=== PATIENT | female | born 1930 | race Caucasian/White ===

== ENCOUNTER → 2018-06-16 | Outpatient (CLI) | payer MEDICARE, OTHER | LOC: BFHH 20:26 | DX: M15.0 Primary generalized (osteo)arthritis (principal); I10 Essential (primary) hypertension; H35.30 Unspecified macular degeneration; H54.8 Legal blindness, as defined in USA; F03.90 Unspecified dementia, unspecified severity, without behavioral disturbance, psychotic disturbance, mood disturbance, and anxiety ==

== ENCOUNTER 2018-06-23 15:30 | Inpatient (IN) | payer MEDICARE, OTHER ==
--- NOTE | 2018-06-23 16:16 | RAD ---
EXAM: XR Abdomen 2 Views With XR Chest CLINICAL HISTORY: The patient is 88 years old and is Female; no bm in 7 days, vomit x1 today TECHNIQUE: Frontal view of the chest, frontal view of the abdomen/pelvis and upright or decubitus view of the abdomen. COMPARISON: Prior lumbar spine x-rays from three days earlier. FINDINGS: LUNGS: Unremarkable. No consolidation. PLEURAL SPACE: Unremarkable. No pneumothorax. HEART: Unremarkable. No cardiomegaly. MEDIASTINUM: Unremarkable. INTRAPERITONEAL SPACE: No free air. GASTROINTESTINAL TRACT: No disproportionate bowel distention or free intraperitoneal air is seen. BONES/JOINTS: The visualized bony structures OTHER FINDINGS: No abnormal calcifications are identified. IMPRESSION: Negative for signs of obstruction or free air. There are low lung volumes. Surgical clips are identified in the LEFT axillary region. Severe degenerative changes are identified in the shoulders. Again noted are stacked loops of air-filled nondistended small bowel in the LEFT upper abdomen along with air-filled nondistended transverse, descending, sigmoid colon and rectum. However, there is also a massively dilated 12 cm cecum with the caput cecum projecting medially in the LEFT lower quadrant. This is unchanged from three days earlier. Impression. 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 Electronically signed by: Dennis Patel MD 06/23/2018 4:15 PM CDT
[2018-06-23] MEDS ORDERED: SODIUM CHLORIDE 0.9% 1000ML 1,000 ML IVS ONE (17:07)
[2018-06-23] MEDS ORDERED: MORPHINE SULFATE INJ 10 MG/ML VIAL IV ONE (18:35)
--- NOTE | 2018-06-23 18:39 | CT ---
EXAM DESCRIPTION: Abdomen/Pelvis w/Contrast CLINICAL HISTORY: volvulus per x-ray COMPARISON: None Available TECHNIQUE: Contiguous axial images of the abdomen and pelvis were obtained after the administration of intravenous contrast followed by reconstruction images.This exam was performed according to our departmental dose-optimization program, which includes automated exposure control, adjustment of the mA and/or kV according to patient size and/or use of iterative reconstruction technique. FINDINGS: The cecum is markedly enlarged and contains a gas fluid level. There is moderate dilatation of the remainder of the colon to the level of the splenic flexure. No significant dilatation of the descending colon and rectosigmoid. There is colonic diverticulosis at the rectosigmoid. Small amount of free fluid is in the pelvis. No significant wall thickening of the colon. No sharp transition point. There is moderate right and small left pleural effusion with bilateral consolidations at the lung bases. Moderate hiatal hernia. There is pancreatic atrophy. There is mild bilateral perinephric stranding. No other acute abnormality. Aorta is normal in caliber and tapering. No free air. IMPRESSION: Findings suggest marked ileus involving the colon as there is no sharp transition point despite marked enlargement of the cecum and moderate enlargement of the midportion of the colon. There is colonic diverticulosis distally. No significant wall thickening to document diverticulitis or suggest neoplasm or ischemia. However degree of dilatation of the proximal and mid colon is concerning. Continued clinical follow-up to resolution of dilatation of loops of bowel is recommended as other etiology for dilatation is not entirely excluded. Electronically signed by: Dc Juares 06/23/2018 6:38 PM CDT
--- NOTE | 2018-06-23 19:04 | ED.PDOC ---
History of Present Illness - General Chief Complaint: GI Problem Stated Complaint: no BM for 7 days Time Seen by Provider: 06/23/18 15:44 Source: patient Exam Limitations: no limitations - History of Present Illness Initial Comments: the patient is an 88-year-old female presenting to the emergency room from [facility]. She does have a history of some significant dementia and hypertension. She had breast cancer more than 11 years ago. No history of any coronary artery disease or stroke. She does have a history of chronic constipation. She did have a fall within the last 2 weeks and does have some compression fractures which she has been recently much less mobile and also taking increased doses of tramadol. She was sent here due to not having had a documented bowel movement in the last 7 days. She is reporting some vague abdominal discomfort in the abdomen is obviously distended. No definite rebound or peritoneal signs on initial exam. No bruising. She does have pain in her back from the compression fracture. The patient did receive an enema yesterday and the day before. At this time she did pass a fair amount of gas. She did have one episode of vomiting this morning and did not want to eat lunch. No blood or bile in the vomitus according to report. No fevers. Timing/Duration: unsure Severity: moderate Improving Factors: nothing Associated Symptoms: malaise, nausea/vomiting Allergies/Adverse Reactions: Allergies Codeine Allergy (Verified 06/23/18 15:52) Home Medications: Ambulatory Orders ALPRAZolam [Xanax] 0.25 mg PO Q12H PRN 06/23/18 Buspirone HCl 10 mg PO TID 06/23/18 Cetirizine HCl [All Day Allergy] 10 mg PO DAILY PRN 06/23/18 Citalopram Hydrobromide 20 mg PO BEDTIME 06/23/18 Docusate Sodium [Stool Softener] 100 mg PO DAILY PRN 06/23/18 Donepezil Hydrochloride [Aricept] 5 mg PO DAILY 06/23/18 Furosemide [Lasix] 20 mg PO DAILY 06/23/18 Glucosamine Sulfate [Glucosamine] 1,000 mg PO DAILY 06/23/18 Ibuprofen 200 mg PO BID 06/23/18 Losartan Potassium & Hydrochlo [Losartan Potassium/Hydroc 100-25 mg] 1 tab PO DAILY 06/23/18 Multiple Vitamins W/ Minerals [Preservision Areds] 1 cap PO BID 06/23/18 Polyethylene Glycol 3350 [Miralax] 17 gm PO DAILY PRN 06/23/18 Tramadol HCl 50 mg PO Q6H PRN 06/23/18 Review of Systems - Review of Systems Constitutional: States: malaise EENTM: States: no symptoms reported Respiratory: States: no symptoms reported Cardiology: States: no symptoms reported Gastrointestinal/Abdominal: States: abdominal pain - vague diffuse, constipation , nausea, vomiting Genitourinary: States: no symptoms reported Musculoskeletal: States: back pain Skin: States: no symptoms reported Neurological: States: other - chronic dementia changes only Endocrine: States: no symptoms reported All other Systems: No Change from Baseline Past Medical History (General) - Patient Medical History Hx Stroke: No Hx Dementia: Yes Hx Congestive Heart Failure: No Hx Hypertension: Yes Hx Diabetes: No Hx Cancer: Yes - Breast - Vaccination History Hx Influenza Vaccination: - unknown Hx Pneumococcal Vaccination: - unknown - Social History Hx Tobacco Use: No - Activities of Daily Living Assisted/Assisted Living (if applicable):: [facility] Family Medical History - Family History Mother Family History: Unknown Living Status: Unknown Physical Exam - Physical Exam General Appearance: Alert, Other - the patient does have obvious dementia. After she is on the bed for a while she does start developing some back pain. Eye Exam: bilateral normal Ears, Nose, Throat: hearing grossly normal, normal ENT inspection, normal pharynx Neck: full range of motion, supple Respiratory: lungs clear, normal breath sounds, no respiratory distress, no accessory muscle use Cardiovascular/Chest: normal peripheral pulses, no edema, other - regular rate Peripheral Pulses: radial,right: 2+, radial,left: 2+, dorsalis pedis,right: 2+, dorsalis pedis,left: 2+ Gastrointestinal/Abdominal: other - abdomen is moderately distended. No rebound or peritoneal signs. Vague discomfort palpation in the lower abdomen. Rectal Exam: deferred Back Exam: other - the patient does have discomfort with palpation over her lower to mid back from the compression fracture. Extremity: non-tender, no calf tenderness, normal capillary refill, pedal edema - trace Neurologic: warm in worker II-XII nml as tested, alert, normal mood/affect - according to her family Skin Exam: normal color Comments: Vital Signs - 24 hr 06/23/18 06/23/1818 15:41 16:30 16:48 Temperature 98.6 F Pulse Rate [ 89 77 89 Left Brachial] Respiratory 20 22 20 Rate Blood Pressure 148/88 158/81 [Left Arm] O2 Sat by Pulse 93 L 98 93 L Oximetry 06/23/18 18:00 Temperature Pulse Rate [ 85 Left Brachial] Respiratory 20 Rate Blood Pressure 164/81 [Left Arm] O2 Sat by Pulse 95 Oximetry Progress - Progress Progress: 06/23/18 19:09 the patient is an 88-year-old female with dementia and a history of chronic constipation presenting secondary to an episode of vomiting today and not having had a good bowel movement in a week. It appears that the patient does have a very significant ileus and may have at one time had a cecal volvulus. it is possible it may be reduced prior to the CT scan with manipulation of the patient's abdomen. she is passing gas. There does not appear to be a large stool burden in the colon. CT scan and lab work showed no indication of any ischemia. She does have a mild elevation of her white blood cell count and the patient is receiving a blood culture and the dose of Zosyn. For the ileus the patient is going to be held on her tramadol, donepezil, cetirizine and Lasix for now. She is receiving IV fluid secondary to decreased oral intake over the last 24 hours. Certainly at 88 years of age, surgical exploration is not a sought after procedure. For now the patient will be monitored with the above changes. We will also try to get her out of bed and move her around as much as possible. We will try and use a lidocaine patch if one is available to help reduce her back pain for the moment. Her decreased mobility along with the tramadol use and dehydration are probably the biggest factors giving her an ileus though the dilation of the proximal colon does likely indicate that this is part of a longer term chronic issue. family are in the medical field and questions have been answered. - Results/Orders Results/Orders: initial acute abdominal series shows changes concerning for a cecal volvulus. CT scan of abdomen and pelvis with IV contrast shows findings that are consistent with a marked ileus involving the colon. There is no sharp transition point to indicate a volvulus at this time. No evidence of any wall thickening to indicate diverticulitis or neoplasm or ischemia. She has mild bilateral perinephric stranding. She does have a moderate hiatal hernia. She has a moderate right and small left pleural effusion with bilateral consolidations at the lung bases. BLOOD CULTURE Stat Laboratory Results - last 24 hr 06/23/18 06/23/18 06/23/18 16:44 16:44 16:44 WBC 12.4 H RBC 4.36 Hgb 13.3 Hct 40.5 MCV 92.9 MCH 30.5 MCHC 32.9 L RDW 13.4 Plt Count 216 MPV 8.8 Absolute Neuts (auto) 11.30 H Absolute Lymphs (auto) 0.40 L Absolute Monos (auto) 0.60 Absolute Eos (auto) 0.00 Absolute Basos (auto) 0.10 Neutrophils % 91.4 H Lymphocytes % 2.9 L Monocytes % 5.2 Eosinophils % 0.0 L Basophils % 0.5 PT 10.6 INR 1.06 PTT (SP) 23.9 Sodium 133 L Potassium 3.4 L Chloride 91 L Carbon Dioxide 32 H Anion Gap 13.4 BUN 33 H Creatinine 0.83 BUN/Creatinine Ratio 39.8 H Random Glucose 122 H Serum Osmolality 274.9 L Lactic Acid Calcium 9.1 Total Bilirubin 0.6 AST 23 ALT 23 Alkaline Phosphatase 70 Creatine Kinase 119 CK-MB (CK-2) 6.6 H* CK-MB (CK-2) % 5.55 H Troponin I 0.02 Serum Total Protein 6.8 Albumin 3.6 Globulin 3.2 Albumin/Globulin Ratio 1.1 Amylase 36 Lipase 20 L 06/23/18 16:44 WBC RBC Hgb Hct MCV MCH MCHC RDW Plt Count MPV Absolute Neuts (auto) Absolute Lymphs (auto) Absolute Monos (auto) Absolute Eos (auto) Absolute Basos (auto) Neutrophils % Lymphocytes % Monocytes % Eosinophils % Basophils % PT INR PTT (SP) Sodium Potassium Chloride Carbon Dioxide Anion Gap BUN Creatinine BUN/Creatinine Ratio Random Glucose Serum Osmolality Lactic Acid 1.2 Calcium Total Bilirubin AST ALT Alkaline Phosphatase Creatine Kinase CK-MB (CK-2) CK-MB (CK-2) % Troponin I Serum Total Protein Albumin Globulin Albumin/Globulin Ratio Amylase Lipase Departure - Departure Clinical Impression: Ileus, unspecified Disposition: Admit Patient Home Medications: Ambulatory Orders ALPRAZolam [Xanax] 0.25 mg PO Q12H PRN 06/23/18 Buspirone HCl 10 mg PO TID 06/23/18 Cetirizine HCl [All Day Allergy] 10 mg PO DAILY PRN 06/23/18 Citalopram Hydrobromide 20 mg PO BEDTIME 06/23/18 Docusate Sodium [Stool Softener] 100 mg PO DAILY PRN 06/23/18 Donepezil Hydrochloride [Aricept] 5 mg PO DAILY 06/23/18 Furosemide [Lasix] 20 mg PO DAILY 06/23/18 Glucosamine Sulfate [Glucosamine] 1,000 mg PO DAILY 06/23/18 Ibuprofen 200 mg PO BID 06/23/18 Losartan Potassium & Hydrochlo [Losartan Potassium/Hydroc 100-25 mg] 1 tab PO DAILY 06/23/18 Multiple Vitamins W/ Minerals [Preservision Areds] 1 cap PO BID 06/23/18 Polyethylene Glycol 3350 [Miralax] 17 gm PO DAILY PRN 06/23/18 Tramadol HCl 50 mg PO Q6H PRN 06/23/18 Decision To Admit - Decistion To Admit Decision to Admit Reason: Medical Nature Decision to Admit Date: 06/23/18 Decision to Admit Time: 20:14
[2018-06-23] MEDS ORDERED: PIPERACILLIN/TAZOBACTAM 3.375 GM in SODIUM CHLORIDE 0.9% 100ML 100 ML IVPB ONE (19:07)
[2018-06-23] MEDS ORDERED: METOCLOPRAMIDE HCL INJ 10 MG/2 ML VIAL IV ONE (19:07)
[2018-06-23] MEDS ORDERED: PIPERACILLIN/TAZOBACTAM 3.375 GM VIAL IVPB ONE (20:28)
[2018-06-23] MEDS ORDERED: SODIUM CHLORIDE 0.9% 100ML 100 ML IVPB ONE (20:28)
--- NOTE | 2018-06-23 20:40 | HP ---
SUPERVISING PHYSICIANS: Lexx Larios MD CHIEF COMPLAINT: Administer pain. HISTORY OF PRESENT ILLNESS: This is an 88 year-old female patient who recently moved to [facility] from [place] several months ago. Approximately one week ago she slid to the floor in the bathroom at [place] and ad a compression fracture in her back. The family said that she came to the Emergency Room and her PCP, Dr. Camargo from [place] reviewed it and gave her some Tramadol. She is normally using her walker at [place] and in the last weeks due to the pain she has been in bed most of the time. She does have a significant history of constipation, especially induced by opioids and she has been taking more Tramadol than she normally does. Over the last couple of days she started having some vague abdominal discomfort. Today, it was much worse and they brought her to the Emergency Room. Her vital signs in the Emergency Room were stable with blood pressure 148/88 and a pulse rate of 89. Her lab showed a white count of 12,400 with a left shift on difficulty. Her sodium was slightly low at 133, potassium 3.4, chloride 91, carbon dioxide 32, BUN 33, creatinine 0.83. Glucose 122, lactic acid 1.2. CKMB 6.6 Troponin 0.02, creatinine kinase 119. Abdominal x-ray in the Emergency Room showed negative for signs of obstruction or free air and stacked loops of air-filled, nondistended small bowel in the left upper abdomen along with air-filled nondistended transverse descending sigmoid colon and rectum. She also has a 12 cm dilated cecum with the caput cecum projecting medially in the left lower quadrant. This is unchanged from 3 days earlier. These findings can be seen in the cecal volvulus. Her abdominal CT was obtained and showed a cecum that is markedly enlarged and contains a gas fluid level. There is moderate dilatation of the remainder of the colon to the level of the splenic flexure. No significant dilatation of the descending colon and rectosigmoid. There is colonic diverticulosis at the rectosigmoid, small amount of free fluid is in the pelvis. No significant wall thickening of the colon. No sharp transition point. There is a moderate small left pleural effusion at the lung bases with a moderate hiatal hernia. There is pancreatic atrophy with mild bilateral perinephric stranding and no other acute abnormality. Due to the possibility of developing ileus, I spoke with Dr. Corrales, general surgeon, and he felt that since we do not have a surgical crew over the weekend he would recommend that I talk to a surgeon at another facility in case we need to transfer. I also spoke with Dr. Larios, the attending hospitalist, and he agreed that she could be admitted to the hospital if we had a backup plan in case of a developing ileus and surgical intervention was needed. I then spoke with Dr. Miranda Gates, general surgeon in [place] at [facility] and she agreed that we could treat the patient here in our hospital and if the patient needed surgical intervention, that they would be willing to take the patient as a transfer. PAST MEDICAL HISTORY: 1. Hypertension. 2. Constipation usually opioid induced. 3. Hyperlipidemia. 4. History of left breast cancer. 5. History of dementia. 6. History of depression and anxiety. PAST SURGICAL HISTORY: 1. Lumpectomy, left breast. 2. Hysterectomy. ALLERGIES: CODEINE SOCIAL HISTORY: She denies any smoking, ETOH or illicit drug use. She sees Dr. Camargo in [place]. She has 3 children. She just recently moved to [facility] from [place]. REVIEW OF SYSTEMS: GENERAL: Positive for malaise, negative for fever or weight changes. HEENT: Negative for sinus symptoms, ear pain, vision changes or sore throat. RESPIRATORY: Negative for coughing, wheezing, shortness of breath. CARDIAC: Negative for chest pain, palpitations, tachycardia. GI: As per history of present illness. : Negative for hematuria, dysuria, polyuria. SKIN: Negative for lesions or rashes. NEURO: Positive for weakness, negative for seizures or headaches. PHYSICAL EXAMINATION: VITAL SIGNS: She is afebrile. Heart rate 85, blood pressure 158/81, respiratory rate 22, 02 saturation 93% on 2 liters nasal canula. GENERAL: This is an 88 year-old female patient who is in no acute distress. HEENT: Normocephalic and atraumatic. Pupils equal and reactive. Oropharynx sclera. NECK: Supple without mass. CHEST: Essentially clear to auscultation bilateral. She is somewhat diminished at the bases. There is equal rise and fall of the chest with inspiration and expiration. CARDIOVASCULAR: Regular rate and rhythm. ABDOMEN: Abdomen is rounded, it is firm. The patient is passing flatus. Bowel sounds are positive but they are slightly hypoactive. She is diffusely tender throughout but there is no rebound tenderness or guarding. SKIN: Warm and dry. EXTREMITIES: No cyanosis, clubbing, or edema. NEUROLOGIC: She is awake, alert and oriented to person only. Labs and films are as per the history of present illness. ASSESSMENT: 1. Abdominal pain with nausea and vomiting with concerns for early development of an ileus. 2. Recent compression fracture approximately one week ago, has been on opioid pain medications. 3. History of constipation, especially opioid induced. 4. Hypertension. 5. Hyperlipidemia. 6. History of left breast cancer. PLAN: We will admit the patient to the hospital. I have spoken to the daughters as well as nursing staff and we will have frequent ambulation and I will do an abdominal x-ray in the morning. I have also consulted physical therapy. We will discontinue her opioid pain medications. I am going to give her 5 doses of IV Tramadol. I will also put her on bowel rest and give her some IV fluids overnight. I will a Dulcolax suppository, tomorrow she may need a small dose of a laxative. I ordered SCDs for DVT prophylaxis and PPI for ulcer prophylaxis. If the patient's condition worsens and she will need surgical intervention prior to us being able to do that here at this hospital, Dr. Miranda Gates, general surgeon at [facility] in [place], has been contacted about the patient and will accept in transfer. We will continue to monitor closely and follow as needed. Dr. Larios is the collaborating physician available for consultation. #[id number] [facility]
[2018-06-23] MEDS ORDERED: SODIUM CHLORIDE 0.9% (FLUSH) 10 ML SYG IV PRN (21:05)
[2018-06-23] MEDS ORDERED: BISACODYL SUPPOSITORY 10 MG PR ONE (21:12)
[2018-06-23] MEDS ORDERED: PANTOPRAZOLE SODIUM IV 40 MG VIAL IV SCH (21:30)
[2018-06-23] MEDS: KCL 20MEQ/D5NS 1,000 ML IVS PRN (22:05)
[2018-06-23] MEDS: IV SET AND CAP CHANGE INJ INJ SCH (22:06)
[2018-06-23] MEDS: KETOROLAC TROMETHAMINE INJ 30 MG/ML VIAL IV SCH (22:09)
[2018-06-24] MEDS: KETOROLAC TROMETHAMINE INJ 30 MG/ML VIAL IV SCH ×4 (03:14→20:54)
--- NOTE | 2018-06-24 07:44 | RAD ---
EXAM DESCRIPTION: Abdomen Flat Upright CLINICAL HISTORY: 88 years, Female, ? ileus COMPARISON: CT abdomen and pelvis with contrast June 23, 2018 TECHNIQUE: Supine and upright views of the abdomen FINDINGS: Stable marked dilation of the colon which is most pronounced in the cecum. Small bowel is grossly stable in appearance. There is no evidence of free air. There are no abnormal masses or calcifications. Limited evaluation of the liver, spleen, and kidneys demonstrate no gross abnormalities. The osseous structures are age appropriate. IMPRESSION: Stable dilated colon and small bowel diffusely, likely representing ileus. The tapered dilation of the colon diffusely bowel obstruction considered less likely. Electronically signed by: Charisma Elmore MD 06/24/2018 7:42 AM CDT
[2018-06-24] MEDS: KCL 20MEQ/D5NS 1,000 ML IVS PRN (08:11)
[2018-06-24] MEDS: SODIUM CHLORIDE 0.9% (FLUSH) 10 ML SYG IV SCH ×2 (09:04→20:54)
[2018-06-24] MEDS ORDERED: BISACODYL SUPPOSITORY 10 MG PR ONE (13:38)
[2018-06-24] MEDS ORDERED: MAGNESIUM HYDROXIDE 30 ML UD PO ONE (13:38)
--- NOTE | 2018-06-24 13:38 | PN ---
DATE: 06/24/28 SUPERVISING PHYSICIAN: Lexx Larios MD SUBJECTIVE: Patient is lying in bed. She is more awake today. She is still slightly confused and having a difficulty time answering questions but is very pleasant and has no complaints of back pain at this time. After examination, it was reported to me that patient was getting very agitated and I went to see her she is anxious, somewhat restless and we have called her daughters to come sit with the patient. OBJECTIVE: VITAL SIGNS: She is afebrile. Heart rate 75, blood pressure 124/81, respiratory rate 18, 02 saturation 97% on 2 liters nasal cannula. RESPIRATORY is essentially clear to auscultation bilaterally. She is somewhat diminished at the bases. CARDIAC: Regular rate and rhythm. ABDOMEN: Abdomen is rounded, still somewhat firm but less firm than yesterday. Bowel sounds are positive. It continues to be diffusely tender but no rebound tenderness or guarding. NEURO: She is awake and alert. LABORATORY: WBC improved to 9,800 with hemoglobin of 11.3 and hematocrit of 34.1. She continues to have a left shift on her differential. Sodium 137, potassium 3.4, chloride 97, carbon dioxide 33, BUN 27, creatinine 0.82. Glucose 127, calcium 8.3. Preliminary blood cultures are negative to date. Abdominal x-ray shows stable dilated colon and small bowel diffusely likely representing ileus Tapered dilation of the colon diffusely. Bowel obstruction considered less likely. All other labs and films have been reviewed via the EMR. ASSESSMENT: 1. Abdominal pain with nausea and vomiting with concerns for early development of an ileus. 2. Recent compression fracture approximately one week ago, has been on opioid pain medications. 3. History of constipation, especially opioid induced. 4. Hypertension. 5. Hyperlipidemia. 6. History of left breast cancer. PLAN: We will continue present supportive care. I have consulted Dr. Corrales to see the patient and I will defer to him for any other laxatives or bowel preps. I will also leave her n.p.o. at this time. There was no urine collected so I have ordered a straight cath to be done. Her white count was elevated on admission and need to rule out any urinary tract infections. I have given her some Ativan for anxiety. I have ordered labs and x-rays in the morning and we will continue to monitor closely and follow as needed. Dr. Larios is the collaborating physician available for consultation. #[id number] [facility]
[2018-06-24] MEDS: HALOPERIDOL LACTATE INJ 5 MG/ML VIAL IM PRN (14:25)
--- NOTE | 2018-06-24 20:10 | CONS ---
DATE OF CONSULTATION: 06/24/18 REFERRING PHYSICIAN: Hospitalist Service, Lexx Larios M.D. and JOLLY Lindsay HISTORY OF PRESENT ILLNESS: The patient is an 88 year-old female who was admitted from [facility] yesterday with abdominal distention, discomfort and a history of no bowel movement for 7 days despite being given a Fleets enema and a soap suds enema by home health. The patient significantly has a compression fracture and has been on Tramadol which seems to have exacerbated her long history of constipation. There has been no fever or chills. No vomiting. PAST MEDICAL HISTORY: 1. Carcinoma of the left breast. The carcinoma was treated with a lumpectomy. I am uncertain whether she had radiation therapy. 2. History of hypertension. 3. Hyperlipidemia. 4. Dementia. 5. Depression and anxiety. PAST SURGICAL HISTORY: 1. Hysterectomy. CURRENT MEDICATIONS: I do not have her current medicine list. ALLERGIES: CODEINE. FAMILY HISTORY: SOCIAL HISTORY: The patient has no history of tobacco or alcohol abuse. She has 3 children and as noted was [facility] [place]. REVIEW OF SYSTEMS: Positive for malaise. There is no history of nasal discharge, sore throat, cough or wheezing. There is no history of chest pain, tachycardia or shortness of breath. There is no history of change in bowel habit other than the recent constipation. There is no history of dysuria or hematuria. NEUROLOGIC: The patient denies to me back pain. PHYSICAL EXAMINATION: VITAL SIGNS: She is afebrile and normotensive. HEENT: Reveals her sclera to be nonicteric. Mucous membranes are moist. NECK: Without adenopathy. BACK: Without CVA tenderness. CHEST: She has equal breath sounds bilaterally. ABDOMEN: Firm with mild diffuse tenderness, greatest in the right upper quadrant, nothing in the right lower quadrant. There is a well healed surgical scar in the lower midline. PELVIC AND RECTAL: Examinations are deferred. EXTREMITIES: Without clubbing, cyanosis or edema. LABORATORY: This morning, reveals a white blood cell count down to 9.8 form 12.4 yesterday. Hemoglobin has dropped from 11.3 to 13.3. She has 184,000 platelets and 87% neutrophils down from 91% neutrophils. Chemistries reveal potassium stable at 3.4, creatinine 0.82, sodium 137. LFTs are within normal limits. CK-MB was 6.6 with a CK of 119. Amylase and lipase were within normal limits. Blood cultures are negative at this point. X-RAY: On the x-ray yesterday there was mentioned the possibility of a cecal volvulus on plain film, however the CT scan did not identify the volvulus. It showed dilated small bowel loops, dilated cecum to 12 cm and a tapering of the colonic distention to essentially the splenic flexure. Today's x-ray reveals continued dilated loops of bowel with no significant change, certainly no free air. IMPRESSION: 1. 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 PLAN: At this point, we would continue conservative management with a dose of Milk of Magnesia and a repeat of her Dulcolax which was successful overnight with her having 2 bowel movements and continue her NPO except for minimal ice chips, and proceed as clinically is appropriate. #[id number] [facility]
[2018-06-24] MEDS: PANTOPRAZOLE SODIUM IV 40 MG VIAL IV SCH (20:54)
[2018-06-25] MEDS: KCL 20MEQ/D5NS 1,000 ML IVS PRN (05:51)
--- NOTE | 2018-06-25 07:09 | RAD ---
Procedure: XR ABDOMEN 2 VIEWS SUPINE ERECT Exam Date: 06/25/2018 Ordering Provider: MARIELOS GONZALEZ Clinical Indication: ileus? Comparison: 06/24/2018 Findings/impression: Stable gaseous distention of the colon to the level of the splenic flexure. Gas is seen distally in the rectum. No small bowel distention. There is no pneumoperitoneum. There are no suspicious calcifications. Pelvic phleboliths. There is no acute osseous abnormality. Electronically signed by: Rizwan Dee MD 06/25/2018 7:08 AM CDT
[2018-06-25] MEDS: ENOXAPARIN SODIUM 40 MG/0.4 ML SYG SUBCU SCH (09:01)
[2018-06-25] MEDS: SODIUM CHLORIDE 0.9% (FLUSH) 10 ML SYG IV SCH ×2 (09:01→20:27)
[2018-06-25] MEDS ORDERED: MAGNESIUM HYDROXIDE 30 ML UD PO SCH (11:45)
[2018-06-25] MEDS ORDERED: BISACODYL SUPPOSITORY 10 MG PR SCH (11:45)
[2018-06-25] MEDS: KCL 40MEQ/NS 1,000 ML IVS PRN (14:41)
--- NOTE | 2018-06-25 15:06 | PN ---
SUPERVISING PHYSICIAN: Daniel Randall MD DATE: 06/25/18 SUBJECTIVE: The patient is pretty confused secondary to her dementia. She is unable to really tell me if she has had any bowel movements or passing any gas at this time. She paulson not appear to be in any distress, however. OBJECTIVE: VITAL SIGNS: Blood pressure 158/79. Heart rate 72. Respiratory rate 18. Temperature 97.5. Oxygen saturation 98%. GENERAL: Ms. Hermosillo is an 88-year-old female in no active distress at this time. NEUROLOGIC: The patient is confused, but no focal deficits. LUNGS: Diminished in the bases, but otherwise clear to auscultation bilaterally. CARDIOVASCULAR: Regular rate and rhythm. Normal S1, S2. ABDOMEN: Distended, but soft. No evidence of tenderness to palpation. GENITOURINARY: Deferred. EXTREMITIES: Lower extremities with some ankle edema. Pulses 2+. LABORATORY: Labs reviewed show hemoglobin 11.7, hematocrit 34.5, normal white count. Chemistry shows sodium 140, potassium 3.4, chloride 101, CO2 30, BUN 18 , creatinine 0.62, glucose 116, calcium 8.5. Abdominal x-ray still shows gaseous distention of the colon. ASSESSMENT: 1. Abdominal pain with nausea and vomiting with concerns for early ileus. 2. Recent compression fracture approximately one week ago, has been on opioid pain medications. 3. Constipation likely worsened secondary to the opioid use. 4. Hypertension. 5. Hyperlipidemia. 6. History of left breast cancer. 7. Dementia. 8. Hypokalemia. PLAN: I have spoken with Dr. Corrales regarding this patient. He states her abdomen is actually better than it was yesterday. She has also had a coupe of bowel movements. He wanted to repeat the Milk of Magnesia as well as the Dulcolax suppository and put her on a clear liquid diet, which I have ordered in the computer. We will repeat her labs tomorrow. I have changed her IV fluids to include more potassium and we will recheck her labs tomorrow to ensure that the potassium is correcting. #[id number] [facility]
[2018-06-25] MEDS: HALOPERIDOL LACTATE INJ 5 MG/ML VIAL IM PRN (20:24)
[2018-06-25] MEDS: PANTOPRAZOLE SODIUM IV 40 MG VIAL IV SCH (20:26)
[2018-06-26] MEDS: KCL 40MEQ/NS 1,000 ML IVS PRN (02:56)
[2018-06-26] MEDS: SODIUM CHLORIDE 0.9% (FLUSH) 10 ML SYG IV SCH (09:14)
[2018-06-26] MEDS: ENOXAPARIN SODIUM 40 MG/0.4 ML SYG SUBCU SCH (09:14)
--- NOTE | 2018-06-26 12:00 | RAD ---
EXAM DESCRIPTION: Abdomen Flat Upright CLINICAL HISTORY: fu dilated bowel COMPARISON: June 25, 2018. CT scan June 23, 2018. FINDINGS: AP supine and upright views of the abdomen continues to show air-filled dilated colon in the central abdomen measuring up to 11 cm transverse. Mildly dilated air-filled loops of small bowel throughout the abdomen are seen. Air is seen throughout the descending to sigmoid colon. No free intraperitoneal air is identified. Visualized lung bases show no acute infiltrates. Moderate degenerative changes of the spine are seen. IMPRESSION: Air-filled distention of the right colon and cecum may be slightly increased compared to previous exam. This could represent sequela of ileus versus obstruction of the colon. Continued follow-up monitoring is recommended. Electronically signed by: Sanjay Narvaez MD 06/26/2018 11:59 AM CDT
--- NOTE | 2018-06-26 13:16 | PN ---
SUPERVISING PHYSICIAN: Daniel Randall MD DATE: 06/26/18 SUBJECTIVE: The patient is a little bit more groggy today. However, she did receive some Ativan earlier, so that could be contributing. However, she still has some abdominal distention with bloating, but the abdomen is soft. She does not complain of any pain when she is awakened. On palpation, she is not complaining of any pain either. She has had multiple bowel movements since yesterday as well. OBJECTIVE: VITAL SIGNS: Blood pressure 166/91. Heart rate 74. Respiratory rate 16. Temperature 97.9. Oxygen saturation 94%. GENERAL: Ms. Hermosillo is an 88-year-old female in no active distress at this time. NEUROLOGIC: The patient is a little lethargic, but awakens easily. This is likely secondary to Ativan. LUNGS: A little bit diminished in the bases, but otherwise clear to auscultation bilaterally. CARDIOVASCULAR: Regular rate and rhythm. Normal S1, S2. ABDOMEN: Slightly distended, but soft. No evidence of tenderness to palpation. Bowel sounds are quite active today whereas yesterday, they were quite diminished. GENITOURINARY: Deferred. EXTREMITIES: Lower extremities with no significant edema. LABORATORY: Hemoglobin 11.6 which is stable. No white count elevation. Chemical shows improvement in her potassium to 4.1 from 3.3 yesterday. Abdominal x-ray shows potential increase in right colonic distention. ASSESSMENT: 1. Abdominal pain with likely ileus. 2. Constipation which is likely caused by compression fracture and opioid use. 3. Hypertension. 4. Hyperlipidemia. 5. History of left breast cancer. 6. Dementia. 7. Hypokalemia, improved. PLAN: I have spoke with Dr. Corrales once again. He feels like she may be a little bit more bloated than she was yesterday. However, she is having multiple bowel movements secondary to the medications we have been giving. He did want an x-ray today, so that has been ordered, and shows potential worsening of right colonic distention. He requested a GI consult, therefore, I discussed the case with Dr. Kendall, who will be here tomorrow. He agreed to see the patient tomorrow, and recommended to use Miralax BID-TID. He recommended not using any further Milk of Magnesia or dulcolax suppositories. We will continue other current medication regimen. Continue with clear liquid diet. We will see how she progresses from here. #[id number] [facility]
[2018-06-26] MEDS: POLYETHYLENE GLYCOL 3350 17 GM PCKT PO SCH ×2 (14:33→21:14)
[2018-06-26] MEDS: LOSARTAN POTASSIUM 25 MG TAB PO SCH (14:59)
[2018-06-26] MEDS: PANTOPRAZOLE SODIUM IV 40 MG VIAL IV SCH (21:07)
[2018-06-27] MEDS: SODIUM CHLORIDE 0.9% (FLUSH) 10 ML SYG IV SCH ×2 (03:29→08:57)
[2018-06-27] MEDS: IV SET AND CAP CHANGE INJ INJ SCH (04:31)
[2018-06-27] MEDS: LOSARTAN POTASSIUM 25 MG TAB PO SCH (08:56)
[2018-06-27] MEDS: ENOXAPARIN SODIUM 40 MG/0.4 ML SYG SUBCU SCH (08:56)
[2018-06-27] MEDS: POLYETHYLENE GLYCOL 3350 17 GM PCKT PO SCH (08:56)
--- NOTE | 2018-06-27 09:20 | RAD ---
EXAM DESCRIPTION: Abdomen Flat Upright CLINICAL HISTORY: ileus vs obstruction COMPARISON: None TECHNIQUE: AP radiographs of the abdomen supine upright. Complete upright chest.. FINDINGS: Markedly dilated gas-filled segments of bowel which forms an upside down U directed toward the right hip joint. This may represent a sigmoid volvulus versus distal stones sigmoid obstruction. The more proximal colon is not significantly distended and no significant distention of small bowel. Upright chest shows no free air under the diaphragms no air-fluid levels in the small bowel. Poor respiratory effort in the lungs. Cardiomegaly may be due to elevated diaphragms displacing the left ventricle. Surgical clips left axilla.. IMPRESSION: Significantly dilated segment of bowel felt to be in the sigmoid colon and could represent a sigmoid volvulus versus distal sigmoid obstruction. Gas throughout the small bowel and proximal colon but no distention is noted. Consider follow-up CT scan with oral contrast. No free air under the diaphragms. No air-fluid levels in other segments of bowel. Electronically signed by: Dc Johnson MD 06/27/2018 9:19 AM CDT
--- NOTE | 2018-06-27 11:25 | CONS ---
DATE OF CONSULTATION: 06/27/18 CHIEF COMPLAINT: Abdominal distention, abdominal pain. REASON FOR CONSULTATION: Abnormal x-ray of the abdomen. Ileus. HISTORY OF PRESENT ILLNESS: This is an 88-year-old, female with significant medical history that includes depression, dementia and recent compression fracture of the spine. She is mostly bedridden. She presented to the Emergency Room for increased abdominal distention, discomfort and no bowel movements for the prior 7 days. She had received some Fleet's enemas and soapsuds enemas with no improvement of symptoms at health care facility where she resides. Of note, she is also chronically on tramadol for her history of compression fractures. No other symptoms per records or interview with family members. I have also obtained most of her history from her primary medical care providers and nursing staff at bedside. PAST MEDICAL HISTORY: 1. Carcinoma of the left breast. 2. History of hypertension. 3. Hyperlipidemia. 4. Dementia. 5. Depression and anxiety. PAST SURGICAL HISTORY: 1. Hysterectomy. CURRENT MEDICATIONS: 1. Lorazepam. 2. Pantoprazole. 3. Polyethylene glycol. 4. Lovenox. 5. Haloperidol p.r.n. ALLERGIES: CODEINE. FAMILY HISTORY: No GI history of significance. No GI malignancies in the family to primary caregiver's knowledge. SOCIAL HISTORY: No tobacco or alcohol abuse. She has three children and currently lives in an assisted living facility in [place]. REVIEW OF SYSTEMS: GENERAL: Positive for malaise. HEENT: There is no history of nasal discharge, sore throat. RESPIRATORY : No cough, wheezing. CARDIOVASCULAR: There is no history of chest pain, tachycardia or shortness of breath. GASTROINTESTINAL : There is no history of change in bowel habits other than recent constipation. GENITOURINARY: There is no history of dysuria or hematuria. NEUROLOGIC: The patient denies any back pain. PHYSICAL EXAMINATION: VITAL SIGNS: Blood pressure 166/91. Heart rate 70. Respiratory rate 20. Temperature 98. Oxygen saturation 94% on room air. GENERAL: She is alert, only oriented x1 (person). HEENT: Dry mucous membranes, anicteric. No oral lesions. No thrush. NECK: Supple. No lesions in the neck. Mobile. CHEST: Bilateral breath sounds intact. HEART: Regular and rhythmic. S1/S2. No murmurs. ABDOMEN: Soft, however, distended, mildly and diffusely tender. Bowel sounds are diminished. EXTREMITIES: Lower extremities show no edema. Muscle strength intact. LABORATORY STUDIES: 06/27/18: Hemoglobin 12.8, MCV 91.8, WBC 8.2, platelet count 204. Potassium 3.7, sodium 130. 06/25/18: Potassium 3.3, magnesium 2.1. RADIOLOGY: X-ray of the abdomen from 06/22/18 shows cecum 12 cm. Diffuse distention of small bowel and colon. X-ray of the abdomen from 06/27/18 shows significant distention with small bowel loops as well as descending colon. Concern for severe dilation of cecum. ASSESSMENT/PLAN: Abdominal distention. 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 The patient is bedridden and unable to voluntarily ambulate. Only her potassium was minimally decreased in recent days and today is normal. However, no trends for other electrolytes are in system. Given concurrent comorbidities and present medical state, decompression seems appropriate management, however, lack of higher level of care and any additional support at this medical facility grants transfer to a different hospital. I have thoroughly and lengthily discussed the case with primary caregivers including surgeon and nurse practitioner. I have also discussed the case with the patient 's family member, Carmen Hermosillo, who would like everything to be done for the patient. In the meantime, I recommend NG tube decompression, obtaining potassium and magnesium as well as phosphorous levels stat and aggressive repletion accordingly. If possible, out of bed and ambulation is strongly recommended. Avoiding narcotic and anticholinergic medications should be a priority. If no improvement, can proceed with colonic decompression as soon as possible. I will wait to hear back from the hospital administration as well as primary caregivers for final decision regarding proceeding with colonic decompression. #[id number] [facility]
[2018-06-27] MEDS ORDERED: DEX 5% W/NACL 0.9% 1000ML 1,000 ML IVS PRN (11:43)
[2018-06-27 12:12] VITALS: BP 158/86; TEMP 98.1; O2SAT 92
--- NOTE | 2018-06-28 00:57 | DS ---
SUPERVISING PHYSICIAN: Daniel Randall M.D. DISCHARGE DIAGNOSIS: 1. Ileus with pseudoobstruction. 2. Constipation that most likely is caused by immobility due to compression fracture and opioid use. 3. Hypertension. 4. Hyperlipidemia. 5. History of left breast cancer. 6. Dementia. 7. Hypokalemia that has improved. HISTORY OF PRESENT ILLNESS: This is an 88 year-old female patient who presented to the Emergency Room on the date of admission. She had recently moved to [facility] from [place] several months ago. About one week prior to admission she slid to the floor in the bathroom at [facility] and had a compression fracture in her back. She came to the Emergency Room for evaluation and then her PCP, Dr. Camargo from [place] reviewed it and gave her some Tramadol. She normally is up using her walker at [facility] but due to the pain in her back she has been more immobile than usual. 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 Her abdomen started hurting several days prior to coming to the [facility]. [facility] but it was a vague abdominal pain. On the day of admission, it was much worse and her vital signs were stable. Her labs showed a white count of 12,400 with a left shift on differential. Sodium was slightly low at 133 with potassium 3.4, chloride 91, carbon dioxide 32. BUN 33, creatinine 0.83. Troponin 0.02. Abdominal x-ray showed negative for signs of obstruction or free air, but stacked loops of air-filled nondistended small bowel in the left upper abdomen along with air-filled nondistended transverse descending sigmoid colon and rectum. She also had a 12 cm dilated cecum with the cecum projecting medially into the left lower quadrant. The abdominal x-ray said that these findings can be seen in cecal volvulus. Her abdominal CT was obtained and showed a cecum that is markedly enlarged and contains gas/fluid levels. There is moderate dilatation of the remainder of the colon to the level of the splenic flexure. No significant dilatation of the descending colon and rectosigmoid. There was colonic diverticulosis at the rectosigmoid, small amount of free fluid in the pelvis. No significant wall thickening of the colon. No sharp transition point. There was moderate small left pleural effusion at the lung bases with a moderate hiatal hernia. Due to the possibility of developing ileus, I spoke with Dr. Corrales, general surgeon, and he felt that since we do not have a surgical crew he recommended that I talk to a surgeon at another facility. I spoke with Miranda Gates at [facility] in [place] and she said that if there was a surgical complication we could transfer her to [facility] for surgical intervention. She was admitted to the hospital. HOSPITAL COURSE: She was placed on bowel rest. She was given IV fluids and she was also given Dulcolax suppository. On Monday, she had 2 fairly large bowel movements. Her white count normalized. She required some electrolyte replacement but over the course of the next few days they stabilized. She was started on clear liquids on Monday. By Monday, her abdomen was painful. Dr. Corrales felt that she was developing an ileus and Dr. Kendall, GI doctor, was consulted this morning. Dr. Corrales and Dr. Kendall both felt that she was developing an ileus and Dr. Kendall recommended that she be transferred to [facility] for decompression and ICU admission post procedure. I spoke with Dr. Penny as well as Dr. Thibodeaux in [place] and she will be accepted in transfer. All of her records and her labs will be going with the patient. She will be transferred via ambulance. DISCHARGE PLAN: The patient will be discharged to [facility] for colon decompression per Dr. Thibodeaux. She will be admitted to the hospitalist services by Dr. Penny. She will be placed in ICU post procedure for close monitoring. She has been sent with all of her reports as well as lab, and she is to followup after discharge with her primary care physician, Dr. Brea Camargo in [place]. DISCHARGE MEDICATIONS: 1. Cetirizine. 2. Buspirone. 3. Citalopram. 4. Glucosamine. 5. Xanax. 6. Losartan Hydrochlorothiazide. 7. Multivitamins. 8. Ibuprofen. 9. Tramadol. 10. MiraLAX. 11. Docusate sodium. 12. Furosemide. 13. Aricept. #[id number] [facility]
== END 2018-06-27 12:10 | disposition short-term general hospital (02) | DRG 390 ==
LOC: ER 15:30 → OBSVTOIN 20:38 → MS 20:38
PROVIDERS: ADMIT Nurse Practitioner Acute Care; ATTEND Nurse Practitioner Acute Care
PROC: BW210ZZ Computerized Tomography (CT Scan) of Abdomen and Pelvis using High Osmolar Contrast (ICD-10-PCS; principal; 2018-06-23)
DX: K56.7 Ileus, unspecified (principal); I10 Essential (primary) hypertension; E78.5 Hyperlipidemia, unspecified; F03.90 Unspecified dementia, unspecified severity, without behavioral disturbance, psychotic disturbance, mood disturbance, and anxiety; E87.6 Hypokalemia; K59.03 Drug induced constipation; T40.2X5A Adverse effect of other opioids, initial encounter; F41.9 Anxiety disorder, unspecified; F32.9 Major depressive disorder, single episode, unspecified; S32.009D Unspecified fracture of unspecified lumbar vertebra, subsequent encounter for fracture with routine healing; Z85.3 Personal history of malignant neoplasm of breast; Y92.009 Unspecified place in unspecified non-institutional (private) residence as the place of occurrence of the external cause